=== PATIENT | male | born 1955 | race Caucasian/White ===

== ENCOUNTER 2020-08-10 06:20 | Inpatient (IN) | payer OTHER, BC ==
[~2020-08-10] VITALS: Ht 172.7 cm; Wt 113.4 kg
[2020-08-10 06:21] VITALS: BP 131/69
[2020-08-10 06:57] LABS: HEMATOCRIT 36.1 % (42.0-52.0); HEMOGLOBIN 12.3 gm/dL (14.0-18.0); MCV 82.5 fL (80.0-100.0); PLATELET COUNT 236 thou/uL (150-400); RBC 4.37 mil/uL (4.50-6.00); RDW 13.5 % (10.5-14.5); WBC 5.4 thou/uL (4.0-11.0)
[2020-08-10 07:06] LABS: CALCIUM 8.6 mg/dL (8.5-10.1); CREATININE 1.3 mg/dL (0.7-1.3)
[2020-08-10 07:10] LABS: ALBUMIN 2.9 g/dL (3.4-5.0); TOTAL BILIRUBIN 0.5 mg/dL (0.2-1.0); TOTAL PROTEIN 7.4 g/dL (6.4-8.2)
[2020-08-10 07:36] LABS: ABSOLUTE NEUTROPHILS 3.7 thou/uL (1.4-8.2); PLATELET ESTIMATE NORMAL
[2020-08-10 08:16] LABS: D-DIMER 0.4 ug/mLFEU (0.19-0.50); FIBRINOGEN 542.4 mg/dL (210-360)
[2020-08-10 09:17] LABS: TSH 0.842 uIU/mL (0.358-3.740)
[2020-08-10 13:01] LABS: URINE BILIRUBIN NEGATIVE (Negative); URINE BLOOD 2+ (Negative); URINE CLARITY CLEAR; URINE COLOR YELLOW; URINE GLUCOSE-RANDOM* NEGATIVE (Negative); URINE KETONES 1+ (Negative); URINE LEUKOCYTES-REFLEX NEGATIVE (Negative); URINE NITRITE-REFLEX NEGATIVE (Negative); URINE PROTEIN (DIPSTICK) 1+ (Negative); URINE SPECIFIC GRAVITY 1.025 (1.005-1.035); URINE UROBILINOGEN 0.2 E.U./dl (0.2-1.0)
[2020-08-10 13:09] LABS: BACTERIA-REFLEX 1-9 Few /HPF (None Seen); CASTS None Seen /LPF (None Seen); CRYSTALS None Seen /LPF (None Seen); SQUAMOUS 0-3 Few /LPF (0-3); URINE RBC 3-10 Few /HPF (0-2); URINE WBC-REFLEX 0-5 Rare /HPF (0-5)
[2020-08-10 15:23] VITALS: BP 138/80
[2020-08-10 19:40] VITALS: BP 158/83
[2020-08-11] VITALS (7 sets, daily range): BP systolic 123–156; BP diastolic 50–85
[2020-08-11 06:09] LABS: HEMATOCRIT 33.8 % (42.0-52.0); HEMOGLOBIN 11.4 gm/dL (14.0-18.0); MCHC 33.9 g/dL (28.0-37.0); MCV 82.7 fL (80.0-100.0); PLATELET COUNT 257 thou/uL (150-400); RBC 4.09 mil/uL (4.50-6.00); RDW 13.6 % (10.5-14.5); WBC 4.6 thou/uL (4.0-11.0)
[2020-08-11 06:15] LABS: FIBRINOGEN 405.1 mg/dL (210-360)
[2020-08-11 06:24] LABS: ALBUMIN 2.6 g/dL (3.4-5.0); CALCIUM 8.5 mg/dL (8.5-10.1); CREATININE 0.9 mg/dL (0.7-1.3); DIRECT BILIRUBIN 0.2 mg/dL (<0.1-0.2); POTASSIUM 3.3 mmol/L (3.5-5.1); TOTAL BILIRUBIN 0.3 mg/dL (0.2-1.0); TOTAL PROTEIN 6.9 g/dL (6.4-8.2)
--- NOTE | 2020-08-11 07:53 | NUR ---
PROGRESS PT SLEPT MOST OF NIGHT A/O X2 TO 3 BUT VERY CONFUSED AT TIMES AND IMPULSIVE, PULLED OUT IV .IV MEDICATIONS GIVEN ORDERED SPECIMEN COLLECTIONS COMPLETED AND SENT TO LAB PT DENIES PAIN. CONTINUE POC.
[2020-08-11 08:17] LABS: ABSOLUTE NEUTROPHILS 2.9 thou/uL (1.4-8.2)
[2020-08-11 08:18] LABS: ANISOCYTOSIS SLIGHT
[2020-08-11] MEDS ORDERED: LISINOPRIL20 MG PO (10:19)
[2020-08-11] MEDS ORDERED: PROTONIX40 M2 PO (10:21)
[2020-08-11] MEDS ORDERED: METFORMIN HCL500 MG PO (10:22)
[2020-08-11] MEDS ORDERED: LIPITOR 40 MG T40 M1 PO (10:22)
[2020-08-11] MEDS ORDERED: NORVASC5 MG PO (10:22)
[2020-08-11] MEDS ORDERED: DIVALPROEX SOD500 MG PO (10:22)
[2020-08-11] MEDS ORDERED: FAMOTIDINE40 MG PO (10:23)
[2020-08-11] MEDS ORDERED: TAMSULOSIN HCL0.4 MG PO (10:31)
[2020-08-11] MEDS ORDERED: DULOXETINE HCL60 MG PO (10:31)
[2020-08-11] MEDS ORDERED: FINASTERIDE5 MG PO (10:33)
[2020-08-11] MEDS ORDERED: PREGABALIN50 MG PO (10:33)
[2020-08-11] MEDS ORDERED: VIAGRA100 MG PO (10:34)
--- NOTE | 2020-08-11 16:39 | NUR ---
ASSESSMENT: CM REVIEWED CHART AND SPOKE WITH PATIENT. PT WAS ADMITTED DUE TO HAVING INCREASED SOB AND IS CURRENTLY IN ENHANCED ISOLATION DUE TO COVID 19. PT REPORTS TESTING POSITIVE ABOUT TWO WEEKS AGO FOR COVID 19 BUT WAS HAVING INCREASED SOB. CM SPOKE WITH PT WHO REPORTS HE LIVES AT HOME WITH HIS IN A HOUSE. PT REPORTS NO STEPS TO ENTER OR ONCE INSIDE. PT USES A CANE FOR AMBULATION. PT DOES NOT WEAR OXYGEN AT HOME BUT IS CURRENTLY ON 2L. PT REPORTS HE IS UNSURE WHERE HE ORIGINALLY GOT TESTED FOR COVID AND REPORTS EVER SINCE HAVING COVID HE FEELS THINGS ARE HARD TO REMEMBER. CM SPOKE WITH PTS WHO REPORTS HE ORGINALLY GOT TESTED AT [facility] IN [place] ABOUT TWO WEEKS AGO. PT IS STILL SHOWING POSITIVE FROM TEST ON 07/10 AND PCR TEST ORDERED 07/11 IS STILL PENDING. CM DISCUSSED ROLE. PT IS DOING WELL WITH THERAPY AND THEY ARE RECOMMENDING PT CAN RETURN HOME ONCE MEDICALLY STABLE. PT HAS NO HX OF HH OR SNF. CM DISCUSSED ROLE. CM WILL CONTINUE TO FOLLOW TO ASSIST NEEDED.
--- NOTE | 2020-08-11 18:05 | NUR ---
ASSUMED PATIENT CARE THIS AM AT APPROXIMATELY 0700. PATIENT IS AWAKE AND ALERT. ORIENTED TO PERSON, CONFUSED AT TIMES. ON 2LNC AND TOLERATING WELL. ENCOURAGED PATIENT TO LEAVE O2 IN PLACE. DESATS TO 82% ON ROOM AIR. WORKED WITH PT/OT THIS SHIFT AND TOLERATED WELL. RECEIVED ALL MEDS ORDERED. LOW GRADE FEVER NOTED THIS AM AND NOT AFERBRILE WITHOUT ANY INTERVENTION.CONVALESCENT PLASMA GIVEN THIS SHIFT AND PATIENT TOLERATED WELL WITHOUT ANY S/S OF ADVERSE REACTION. VSS. PROGRESSING TOWARDS GOALS
--- NOTE | 2020-08-12 02:30 | NUR ---
ASSUMED CARE OF PT FROM DAY SHIFT PT CONFUSED , CONITNULLY TAKING OFF [employer]YROLL HUMAN RESOURCES ASSISTANT AND PULLING IV PT GETTIN OUT BED , ALARM ON. PT DRESSED IN CLOTHES MONITOR OFF PT OUT OF ROOM AND REFUSED TO RETURN , PT BECOMING AGITATED, SECURITY CALLED TO ASSIST IN GETTING PT TO RETURN TO ROOM. SHEEBA MARCO A CALLED NOTIFED, IV ATIVAN GIVING PT RETUNED TO BED AND SLEPT FOR 15 MINS AND AGIAN OUT OF BED , BUT PT IS VERY UNSTEADY AND EYES CLOSED WHEN UP. CALLED AND RECIEVED ORDER FOR SOFT WRIST RESTAINTS APPLIED, CALLED AND INFORMED OF PT CONDITION AND THAT WRIST RESTAINTS APPLIED FOR SAFETY. CADIAC REPLACED SHOWS NSR. PT FREQ CHECKED FOR SAFETY, WILL CONITNUE WITH CURRENT PLAN OF CARE.
[2020-08-12 03:54] VITALS: BP 152/76
[2020-08-12 05:58] LABS: HEMATOCRIT 32.7 % (42.0-52.0); HEMOGLOBIN 10.8 gm/dL (14.0-18.0); MCH 27.6 pg (26.0-34.0); MCHC 33.1 g/dL (28.0-37.0); MCV 83.3 fL (80.0-100.0); RBC 3.92 mil/uL (4.50-6.00); RDW 13.7 % (10.5-14.5); WBC 8.6 thou/uL (4.0-11.0)
[2020-08-12 06:18] LABS: ALBUMIN 2.9 g/dL (3.4-5.0); CALCIUM 9.2 mg/dL (8.5-10.1); DIRECT BILIRUBIN 0.1 mg/dL (<0.1-0.2); MAGNESIUM 1.8 mg/dL (1.8-2.4); TOTAL BILIRUBIN 0.4 mg/dL (0.2-1.0); TOTAL PROTEIN 6.8 g/dL (6.4-8.2)
[2020-08-12 07:35] VITALS: BP 149/75
[2020-08-12 11:13] VITALS: BP 144/81
--- NOTE | 2020-08-12 11:42 | NUR ---
ASSUMED PATIENT CARE THIS AM AT APPROXIMATELY 0700. PATIENT IS AWAKE AND CALM THIS AM. RESTING IN BED AND APPEARS IN NO ACUTE DISTRESS, COOPERATIVE WITH CARE AND MEDS AND ASSESSMENTS CHARTED. VSS. O2 SAT STABLE ON 2LNC. NO COMPLAINTS OF PAIN. RESTRAINTS IN PLACE. ALL SAFETY MEASURES IN PLACE.
[2020-08-12 15:33] VITALS: BP 141/79
--- NOTE | 2020-08-12 16:15 | NUR ---
SW reviewed chart and spoke with nursing and attending physician. Pt remains in Enhanced Isolation due to COVID-19. Pt is afebrile and on 2L of O2. Pt is on IV abx and completing course of Remdesivir. Pt has been placed in restraints due to confusion/agitation. Pt may need an LP. SW is following to assist as needed with discharge planning.
[2020-08-12 19:39] VITALS: BP 120/59
--- NOTE | 2020-08-13 00:35 | NUR ---
PT SLEEPING IN BED SINCE BEGINNING OF SHIFT. PT DOES VERBALLY RESPOND TO HIS NAME, PT DOES NOT ALWAYS OPEN HIS EYES. GENERALIZED EDEMA. HELD HS ZYPREXA PT SEDATED, HR SB LOW 38. BLE EDEMA. BED ALARM ON.
[2020-08-13 01:56] VITALS: BP 124/666
--- NOTE | 2020-08-13 02:05 | NUR ---
PTS HR DROPS 38 TO 42 WHEN SLEEP IT DOES INCREASE TO 56. PT AWAKENED VS TAKEN PT NOT SYMPTOMATIC. NOTED ON TELEMETRY TREND PT WAS SB LAST NIGHT. PROVIDER WILL BE UPDATED.
[2020-08-13 04:06] LABS: GLYCOHEMOGLOBIN (HGB A1C) 8.5 % (4.8-5.6)
--- NOTE | 2020-08-13 04:18 | NUR ---
REVIEWED PTS SB AND HR WITH PROVIDER, DISCUSSED HOLDING ZYPREXA R/T SEDATION. NO BEHAVIORS THIS SHIFT. PT PLEASANT CALM, CLEAR AND PURPOSEFUL VERBAL INTERACTIONS, EASILY AROUSED. REVIEWED PTS CARDIAC MEDICATIONS.
[2020-08-13 06:01] LABS: HEMOGLOBIN 10.7 gm/dL (14.0-18.0); MCH 28.1 pg (26.0-34.0); MCHC 33.5 g/dL (28.0-37.0); MCV 83.8 fL (80.0-100.0); RBC 3.82 mil/uL (4.50-6.00); RDW 13.9 % (10.5-14.5); WBC 6.9 thou/uL (4.0-11.0)
[2020-08-13 06:30] LABS: ALBUMIN 2.6 g/dL (3.4-5.0); CALCIUM 8.9 mg/dL (8.5-10.1); CREATININE 0.9 mg/dL (0.7-1.3); DIRECT BILIRUBIN 0.1 mg/dL (<0.1-0.2); MAGNESIUM 1.9 mg/dL (1.8-2.4); POTASSIUM 3.5 mmol/L (3.5-5.1); TOTAL BILIRUBIN 0.3 mg/dL (0.2-1.0); TOTAL PROTEIN 6.4 g/dL (6.4-8.2)
[2020-08-13 07:11] VITALS: BP 124/61
[2020-08-13 11:17] VITALS: BP 133/66
[2020-08-13 15:17] VITALS: BP 141/72
--- NOTE | 2020-08-13 16:00 | NUR ---
SW reviewed chart. Pt remains in Enhanced Isolation due to COVID-19. Pt is afebrile and on 3L of O2. Pt is on IV abx and IV steroids. Pt is completing course of Remdesivir. Remains in restraints. Pt may need new therapy evals when able to participate. SW is following to assist as needed with discharge planning.
--- NOTE | 2020-08-13 18:22 | NUR ---
RN ASSUMED PT'S CARE AT 0700AM, PT IS A&OX3, PT CAN FOLLOW COMMANDS, PT IS CONTINUING IV ABX , PT IS ON O2 2L/MIN/NC, PT'S VS ARE STABLE, PT IS ON ISOLATION FOR POSITIVE COVID.PT DENIES SON AND N/V.
[2020-08-13 19:40] VITALS: BP 121/59
[2020-08-14 03:07] VITALS: BP 151/78
--- NOTE | 2020-08-14 05:49 | NUR ---
PT MAKING SLOW PROGRESS TOWARDS GOALS. PT ORIENTED TO NAME AND INITIALLY TO HIS SITUATION TO WHICH HE STATED "I GOT SICK." OVERNIGHT PT HAS BECOME ONLY ORIENTED TO HIS NAME. HE HAS NOT BEEN ABLE TO RETAIN THAT HE IS IN THE HOSPITAL, THAT HE HAS PNA OR THAT HE TESTED POSITIVE FOR COVID-19. LUNGS INITIALLY DIMINISHED THROUGHOUT. NOTED FAINT WHEEZING OVER BOTH LOWER LOBES THIS MORNING. O2 AT 2L PER NC OVERNIGHT.
[2020-08-14 06:29] LABS: HEMATOCRIT 33.2 % (42.0-52.0); HEMOGLOBIN 11.1 gm/dL (14.0-18.0); MCH 28.1 pg (26.0-34.0); MCHC 33.6 g/dL (28.0-37.0); MCV 83.9 fL (80.0-100.0); RBC 3.95 mil/uL (4.50-6.00); RDW 13.8 % (10.5-14.5)
[2020-08-14 06:46] LABS: ALBUMIN 2.7 g/dL (3.4-5.0); CALCIUM 8.6 mg/dL (8.5-10.1); DIRECT BILIRUBIN 0.2 mg/dL (<0.1-0.2); MAGNESIUM 1.8 mg/dL (1.8-2.4); POTASSIUM 3.5 mmol/L (3.5-5.1); TOTAL BILIRUBIN 0.3 mg/dL (0.2-1.0); TOTAL PROTEIN 6.7 g/dL (6.4-8.2)
[2020-08-14 07:36] VITALS: BP 150/79
[2020-08-14 11:20] VITALS: BP 156/78
[2020-08-14 15:37] VITALS: BP 148/82
--- NOTE | 2020-08-14 16:23 | NUR ---
RN ASSUMED PT'S CARE AT 0700AM, PT KNOWS HIS NAME AND BIRTHDAY, BUT PT STARTS CONFUSED ABOUT 1500PM,PT STARTS IV FLUID TODAY FOR ABNORMAL LAB RESULTS, PT IS CONTINUING IV ABX, AND O2 2L/MIN/NC, PT GETS UP TO CHAIR FOR 1HR, PT'S VS ARE STABLE, PT IS ON ISOLATION FOR POSITIVE COVID.
[2020-08-14 19:15] VITALS: BP 154/86
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
--- NOTE | 2020-08-15 02:33 | NUR ---
PT IS RESTING QUIETLY TONIGHT. DENIES CONCERNS, DTR CALLED TONIGHT. STAING THAT HE WILL SOMETIMES CALL HER ACTING LIKE HE IS EMOTIONALLY DISTRESSED. CONTINUES ON IV FLUIDS. CAREPLAN REVIEWED.
[2020-08-15 03:25] VITALS: BP 153/54
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
[2020-08-15 07:09] VITALS: BP 134/80
[2020-08-15 10:41] LABS: HEMATOCRIT 35.4 % (42.0-52.0); HEMOGLOBIN 11.4 gm/dL (14.0-18.0); MCH 27.8 pg (26.0-34.0); MCHC 32.3 g/dL (28.0-37.0); MCV 86.1 fL (80.0-100.0); RBC 4.11 mil/uL (4.50-6.00); RDW 13.9 % (10.5-14.5); WBC 8.6 thou/uL (4.0-11.0)
[2020-08-15 11:15] LABS: ABSOLUTE NEUTROPHILS 5.2 thou/uL (1.4-8.2)
[2020-08-15 11:49] VITALS: BP 141/79
[2020-08-15 12:13] LABS: CALCIUM 8.5 mg/dL (8.5-10.1); CREATININE 0.9 mg/dL (0.7-1.3); POTASSIUM 3.4 mmol/L (3.5-5.1)
[2020-08-15 15:56] VITALS: BP 154/84
[2020-08-15 16:11] VITALS: BP 154/84
--- NOTE | 2020-08-15 16:13 | NUR ---
NILAY reviewed chart and spoke with nursing and attending physician. Pt remains in Enhanced Isolation due to COVID-19. Pt is afebrile and not requiring O2. Pt is on IV abx and IV steroids. Pt has completed course of Remdesivir. Discharge home is anticipated for tomorrow. NILAY placed call to pt's room. No answer. NILAY spoke with pt's , Mariela, via phone to discuss discharge plan. Pt's is agreeable with discharge. Discussed HH referral and pt's is agreeable stating pt would benefit from having someone come out to check on him after discharge. HH providers discussed with pt's . No preference voiced. NILAY confirmed pt's home address and phone number. Pt's family will provide transportation home. NILAY faxed HH referral to [facility] and notified intake of new referral. Contact info for HH placed in pt's discharge summary. Finalized discharge orders/summary will need to be faxed to HH when available. NILAY is following to assist as needed with discharge planning. [facility] --
--- NOTE | 2020-08-15 18:22 | NUR ---
PT ALERT AND ORIENTED TIMES FOUR FOR MOST OF THE SHIFT. CONFUSED AND IMPULSIVE THIS EVENING. VSS, 2L 96%, IVF INFUSING PER ORDER. PT DENIES PAIN/SOA. PT TOLERATES MEDS AND MEALS. PT UP WITH ASSIST OF ONE. SPOKE PT SON TO UPDATE ON CARE. PT PROGRESSING TOWRADS POC GOALS.
[2020-08-15 19:39] VITALS: BP 159/76
--- NOTE | 2020-08-16 01:05 | NUR ---
PT ALERT AND ORIENTED X3 . PERIODS OF FORGETFULNESS AND MILD CONFUSION. VSS AFEBRILE. IV FLUIDS INFUSING. BED DOWN. CALL LIGHT IN REACH. SIDE RAILS UP. BED ALARM IS ON. REISNSTRUCTED PT ON FALL PRECAUTIONS. MEDICATED FOR C/O NECK PAIN. PT IS RESTING QUIETLY PRESENTLY SLEEPING. NO S/S DISTRESS.
[2020-08-16 03:57] VITALS: BP 147/91
[2020-08-16 08:20] VITALS: BP 164/86
--- NOTE | 2020-08-16 11:00 | NUR ---
ASSUMED PATIENT CARE THIS AM AT APPROXIMATELY 0700. PATIENT IS AWAKE ALERT. NO ACUTE DISTRESS NOTED AT THIS TIME. DRESSED IN HIS REGULAR STRE[address] CLOTHES THIS AM. STATES THAT HE IS READY TO GO HOME. CALLED PATIENT TO MAKE AWARE OF PLAN. CALLED DR. WELDON TO MAKE AWARE PATIENT IS STILL REQUIRING O2 AT 2.5LNC. EXERCISE/REST OXYMETRY ORDERED TODAY. WILL CTM PATIENT PROGRESS
[2020-08-16 12:08] VITALS: BP 158/86
[2020-08-16] MEDS ORDERED: VENTOLIN HFA 1818 GM INH (12:53)
[2020-08-16] MEDS ORDERED: CEFDINIR300 MG PO (12:54)
[2020-08-16 13:09] VITALS: BP 154/84
--- NOTE | 2020-08-18 16:14 | NUR ---
PT DISCHARGED ON THURSDAY 08/16 TO HOME WITH [facility] FAXED DC ORDERS/SUMMARY SPOKE WITH NEYMAR IN INTAKE SHE RECEIVED UPDATE.
== END 2020-08-16 15:49 | disposition home health service (06) | DRG 177 ==
LOC: ER 06:20 → EROBS 08:15 → 3W 08:15
PROVIDERS: Emergency Medicine; Hospitalist; Specialist; ADMIT Internal Medicine; ATTEND Internal Medicine
PROC: XW033E5 Introduction of Remdesivir Anti-infective into Peripheral Vein, Percutaneous Approach, New Technology Group 5 (ICD-10-PCS; principal; 2020-08-10)
PROC: XW13325 Transfusion of Convalescent Plasma (Nonautologous) into Peripheral Vein, Percutaneous Approach, New Technology Group 5 (ICD-10-PCS; 2020-08-11)
DX: U07.1 COVID-19 (principal); J12.9 Viral pneumonia, unspecified; J96.01 Acute respiratory failure with hypoxia; E44.0 Moderate protein-calorie malnutrition; G93.40 Encephalopathy, unspecified; E87.0 Hyperosmolality and hypernatremia; N17.9 Acute kidney failure, unspecified; E66.9 Obesity, unspecified; E87.6 Hypokalemia; F32.9 Major depressive disorder, single episode, unspecified; E11.65 Type 2 diabetes mellitus with hyperglycemia; E11.40 Type 2 diabetes mellitus with diabetic neuropathy, unspecified; R00.1 Bradycardia, unspecified; Z28.21 Immunization not carried out because of patient refusal; Z68.38 Body mass index [BMI] 38.0-38.9, adult; Z79.899 Other long term (current) drug therapy
CPT/HCPCS: 10879